=== PATIENT | female | born 1955 | race Caucasian/White ===

== ENCOUNTER → 2017-01-24 | Outpatient (CLI) | payer MEDICARE, OTHER ==
[~2017-01-24] MED LIST: ACETAMINOPHEN PO; ALBUTEROL17 GM; ALBUTEROL17 GM INH; ASPIRIN PO; AUGMENTIN PO; BACITRACIN30 GM TOP; BENICAR PO; BENTYL20 MG PO; CELEXA20 MG PO; CIPRO PO; DESYREL50 MG PO; DIFLUCAN100 MG PO; DULERA 100 MCG/13 GM IH; EFFEXOR XR PO; ESTRACE PO; FAMOTIDINE PO; FLEXERIL10 M1 PO; FLEXERIL10 MG PO; FLOVENT DISKUS50 MCG; GABAPENTIN300 M2 PO; GABAPENTIN400 M2 PO; IBUPROFEN800 MG PO; INSULIN GLARGINE; LEVOTHYROXINE100 MC1 PO; LEVOTHYROXINE75 MC1 PO; LEVOXYL PO; LIDOCAINE1 EACH TOP; LISINOPRIL PO; LOVASTATIN20 M1 PO; METFORMIN PO; METOPROLOL TAR25 MG PO; MONTELUKAST SOD10 MG PO; NEURONTIN100 MG PO; NYAMYC PO; OMEPRAZOLE40 M1 PO; ONDANSETRON HCL4 M1 PO; SINGULAIR PO; SYMBICORT INH; SYNTHROID PO; TRADJENTA5 MG PO; TRAMADOL HCL50 M1 PO; TRAZODONE PO; VENTOLIN PO; VICODIN 5/1 TAB 5/50 PO; VITAMIN D1000 UNI2 PO; VITAMIN D250000 UNIT PO; VOLTAREN75 MG PO; ZITHROMAX PO; [UNRECOGNIZED DRUG - OTHER] OP
--- NOTE | ~2017-01-24 | CT2 ---
[facility] A Service [facility] RADIOLOGY TEXT RESULTS PATIENT: GEORGIA BENTLEY LOCATION: [facility] : 59 UNIT #: [id number] AGE: [address]: Tati Cruz MD SEX: F ORDER DR: [id number] [place], [place] [address] [id number] O MR#: [id number] Acc #: [id number] NAME: GEORGIA BETNLEY : 1955 SEX: F STUDY DATE/TIME: 01/24/2017 11:18 UNIT: [facility] ROOM: STUDY DESCRIPTION: CT Abd and Pelv W Cont Attending Physician: Tati Cruz M.D. Referring Physician: Tati Cruz M.D. Ordering Physician: Tati Cruz M.D. Primary Care Physician: Tati Cruz M.D. MEDICAL IMAGING REPORT This report is preliminary unless electronic signature is present EXAM CT abdomen and pelvis with contrast INDICATIONS Right-sided abdominal pain and right-sided flank pain for the past 2 weeks. PROCEDURE Contrast-enhanced CT of the abdomen and pelvis. This CT exam was performed with one or more of the following radiation dose reduction techniques: automatic exposure control, adjustment of mA and/or kV according to patient size, and iterative reconstruction. COMPARISON STUDIES 11/30/2013 FINDINGS ABDOMEN WITH CONTRAST: The included lung bases are clear. The liver, spleen, kidneys, adrenal glands, pancreas unremarkable. Previous cholecystectomy. There are a few mildly prominent periportal nodes that are unchanged. There is mild diffuse thickening of the distal sigmoid colon and rectum. There is also mild thickening in the ascending colon. No abdominal fluid collection. PELVIS WITH CONTRAST: Previous hysterectomy. No pelvic mass or fluid. No aggressive appearing bone lesion. IMPRESSION Mild apparent thickening of the sigmoid colon and rectum as well as thickening in the ascending colon. Correlate for the possibility of colitis. There is no evidence for abscess and only minimal surrounding haziness suggesting mild inflammation. No evidence for obstruction. [facility] A Service [facility] RADIOLOGY TEXT RESULTS PATIENT: GEORGIA BENTLEY LOCATION: [facility] : 59 UNIT #: [id number] AGE: [address]: Tati Cruz MD SEX: F ORDER DR: Dictated by... Mayco Nunez M.D. THIS IS AN ELECTRONICALLY VERIFIED REPORT Mayco Nunez M.D. at 01/26/2017 2:28 PM SENIA/alicia TD: 01/24/2017 15:27 JOB #: [id number] MEDICAL IMAGING REPORT Page 1 of 1 COPY
[2017-01-24 10:40] LABS: POC - CREATININE 0.83 mg/dL (0.44-1.03); POC - GFR >60.0 mL/min (>60)
== END | disposition home or self-care (01) ==
LOC: CCAT 08:55
PROVIDERS: Family Medicine
DX: R10.13 Epigastric pain (principal); K63.89 Other specified diseases of intestine; Z80.51 Family history of malignant neoplasm of kidney
CPT/HCPCS: 74177; 82565; Q9967

== ENCOUNTER 2017-02-18 17:26 | Emergency (ER) | payer MEDICARE, OTHER ==
--- NOTE | ~2017-02-18 | EKG ---
PATIENT: GEORGIA BENTLEY UNIT #: [id number] Ventricular Rate: 76 BPM Atrial Rate: 76 BPM P-R Interval: 150 ms QRS Duration: 74 ms Q-T Interval: 390 ms QTC Calculation(Bezet): 438 ms P [place]: 54 degrees Calculated R [place]: 24 degrees Calculated T [place]: 13 degrees Diagnosis Line: Normal sinus rhythm Diagnosis Line: Low voltage QRS Diagnosis Line: Borderline ECG Diagnosis Line: When compared with ECG of 03-FEB-2015 08:37, Diagnosis Line: Inverted T waves have replaced nonspecific T wave Diagnosis Line: abnormality in Inferior leads Diagnosis Line: Confirmed by DANNY SANCHEZ MD ([id number]) on 02/23/2017 Diagnosis Line: 2:38:03 PM INTERPRETING MD: LAURA DAY
--- NOTE | ~2017-02-18 | CR72 ---
[facility] A Service of [facility] RADIOLOGY TEXT RESULTS PATIENT: GEORGIA BENTLEY LOCATION: [facility] : 59 UNIT #: [id number] AGE: [address]: Wesley López MD SEX: F ORDER DR: [id number] [facility] [address] [place], [place] [address] [id number] E MR#: [id number] Acc #: [id number] NAME: GEORGIA BENTLEY : 1955 SEX: F STUDY DATE/TIME: 02/18/2017 21:45 UNIT: [facility] ROOM: STUDY DESCRIPTION: CR Chest Single View Portable Attending Physician: Mayco López M.D. Ordering Physician: Ed Matt Workman M.D. Primary Care Physician: Tati Cruz M.D. MEDICAL IMAGING REPORT This report is preliminary unless electronic signature is present EXAM AP view of the chest COMPARISON February 03, 2015, September 20, 2014. INDICATION 61-year-old female with left-sided chest pain for 3 days. FINDINGS Heart size appears mildly enlarged from comparisons, possibly secondary to portable technique. Mild cardiomegaly cannot be excluded. No evidence of pneumothorax, pleural effusions, acute airspace disease, or pulmonary edema. IMPRESSION No acute radiographic abnormality of the chest. Questionable cardiomegaly, perhaps developed from 2014. This is not well evaluated on portable exam. Dictated by... Brijesh Darby M.D. THIS IS AN ELECTRONICALLY VERIFIED REPORT Brijesh Darby M.D. at 02/20/2017 10:33 PM Vesta TD: 02/19/2017 14:18 JOB #: [id number] MEDICAL IMAGING REPORT Page 1 of 1 COPY
[~2017-02-18 17:26] MED LIST changes: -DESYREL50 MG PO; -FLOVENT DISKUS50 MCG; -GABAPENTIN400 M2 PO; -INSULIN GLARGINE; -LEVOTHYROXINE100 MC1 PO; -LIDOCAINE1 EACH TOP; -METOPROLOL TAR25 MG PO; -MONTELUKAST SOD10 MG PO; -NYAMYC PO; -ONDANSETRON HCL4 M1 PO; -SYMBICORT INH; -TRADJENTA5 MG PO; -VENTOLIN PO; -VITAMIN D1000 UNI2 PO
[2017-02-18 18:44] LABS: BASOPHIL# 0.1 X10e3 (0-0.3); BASOPHIL% 0.6 % (0-2.5); EOSINOPHIL# 0.5 X10e3 (0-0.7); EOSINOPHIL% 4.5 % (0.0-7.0); HEMATOCRIT 39.1 % (35.0-45.0); HEMOGLOBIN 13.4 gm/dL (12.0-16.0); LYMPHOCYTE# 2.6 X10e3 (1.0-3.5); LYMPHOCYTE% 22.1 % (17.0-45.0); MEAN CELL VOLUME 84.7 FL (83-96); MEAN CORPUSCULAR HGB CONC 34.2 g/dL (30-36); MEAN PLATELET VOLUME 8.5 FL (6.5-11.5); MONOCYTE# 0.9 X10e3 (0-1.0); MONOCYTE% 7.5 % (3.0-12.0); NEUTROPHIL# 7.7 X10e3 (1.5-7.1); NEUTROPHIL% 65.3 % (40-75); PLATELET COUNT 212 X10e3 (140-420); RED BLOOD COUNT 4.61 X10e (3.90-5.30); RED CELL DISTRIBUTION WIDTH 13.1 % (11.0-15.5); WHITE BLOOD COUNT 11.8 X10e3 (4.0-10.5)
[2017-02-18 18:54] LABS: DIFF IND NO
[2017-02-18 19:11] LABS: ALBUMIN SERUM 4.4 g/dL (3.5-5.0); BILIRUBIN, DIRECT 0.1 mg/dL (0.0-0.2); BILIRUBIN,INDIRECT 0.8 mg/dL (0.0-0.9); BILIRUBIN,TOTAL 0.9 mg/dL (0.2-2.0); BUN/CREATININE RATIO 21.66; CALCIUM SERUM 9.1 mg/dL (8.4-10.2); CREATININE SERUM 0.6 mg/dL (0.6-1.4); GLOM FILT RATE Estimated 99.8 mL/min (>60); PROTEIN TOTAL SERUM 7.5 g/dL (6.0-8.3)
[2017-02-18 19:12] LABS: POC - CKMB <1.0 ng/mL (0.0-7.9); POC - TROPONIN <0.05 ng/mL (<=0.05)
[2017-02-18 21:22] LABS: POC - CKMB <1.0 ng/mL (0.0-7.9); POC - TROPONIN <0.05 ng/mL (<=0.05)
[2017-02-19] MEDS ORDERED: LEVOTHYROXINE100 MC1 PO (00:52)
[2017-02-19] MEDS ORDERED: TRADJENTA5 MG PO (00:52)
[2017-02-19] MEDS ORDERED: METOPROLOL TAR25 MG PO (00:52)
[2017-02-19] MEDS ORDERED: LOVASTATIN20 M1 PO (00:53)
[2017-02-19] MEDS ORDERED: MONTELUKAST SOD10 MG PO (00:53)
[2017-02-19] MEDS ORDERED: GABAPENTIN400 M2 PO (00:53)
[2017-02-19] MEDS ORDERED: OMEPRAZOLE40 M1 PO (00:54)
[2017-02-19] MEDS ORDERED: ONDANSETRON HCL4 M1 PO (00:54)
[2017-02-19] MEDS ORDERED: BENTYL20 MG PO (00:55)
[2017-02-19] MEDS ORDERED: FLEXERIL10 MG PO (00:56)
[2017-02-19] MEDS ORDERED: SYMBICORT INH (00:57)
[2017-02-19] MEDS ORDERED: VENTOLIN PO (01:00)
[2017-02-19] MEDS ORDERED: FLOVENT DISKUS50 MCG (01:01)
[2017-02-19] MEDS ORDERED: INSULIN GLARGINE (01:03)
[2017-02-19] MEDS ORDERED: NYAMYC PO (01:05)
[2017-02-19] MEDS ORDERED: IBUPROFEN800 MG PO (01:06)
[2017-02-19] MEDS ORDERED: VITAMIN D1000 UNI2 PO (01:07)
[2017-02-19] MEDS ORDERED: DESYREL50 MG PO (01:07)
[2017-02-19] MEDS ORDERED: LIDOCAINE1 EACH TOP (01:09)
== END 2017-02-19 02:32 | disposition home or self-care (01) ==
LOC: CED 17:26
PROVIDERS: Emergency Medicine
DX: R07.9 Chest pain, unspecified (principal); E11.9 Type 2 diabetes mellitus without complications; J45.909 Unspecified asthma, uncomplicated; I10 Essential (primary) hypertension; E03.9 Hypothyroidism, unspecified; Z90.49 Acquired absence of other specified parts of digestive tract; Z90.710 Acquired absence of both cervix and uterus; Z88.0 Allergy status to penicillin; Z88.8 Allergy status to other drugs, medicaments and biological substances; Z79.899 Other long term (current) drug therapy
CPT/HCPCS: 36415; 71010; 80048; 80076; 82553; 84484; 85025; 93005; 99285

== ENCOUNTER → 2017-03-07 | Outpatient (CLI) | payer MEDICARE, OTHER ==
[~2017-03-07] MED LIST changes: +DESYREL50 MG PO; +FLOVENT DISKUS50 MCG; +GABAPENTIN400 M2 PO; +INSULIN GLARGINE; +LEVOTHYROXINE100 MC1 PO; +LIDOCAINE1 EACH TOP; +METOPROLOL TAR25 MG PO; +MONTELUKAST SOD10 MG PO; +NYAMYC PO; +ONDANSETRON HCL4 M1 PO; +SYMBICORT INH; +TRADJENTA5 MG PO; +VENTOLIN PO; +VITAMIN D1000 UNI2 PO
--- NOTE | ~2017-03-07 | MY29 ---
[facility] A Service [facility] RADIOLOGY TEXT RESULTS PATIENT: GEORGIA BENTLEY [facility] 59 UNIT #: [id number] AGE: [address]: Tati Cruz MD SEX: F ORDER DR: [id number] [facility] [address] [place], [place] [address] [id number] O MR#: [id number] Acc #: [id number] NAME: GEORGIA BENTLEY. : 1955 SEX: F STUDY DATE/TIME: 03/07/2017 12:23 [facility] ROOM: STUDY DESCRIPTION: MY BRYCE SCREENING W/ CAD BILAT Attending Physician: Tati Cruz M.D. Referring Physician: Tati Cruz M.D. Ordering Physician: Tati Cruz M.D. Primary Care Physician: Tati Cruz M.D. MEDICAL IMAGING REPORT This report is preliminary unless electronic signature is present EXAM Bilateral digital screening with CAD INDICATION Routine screening. No current complaints. No family history of breast cancer. COMPARISON 01/13/2016, 12/12/2014 and 12/10/2013 FINDINGS MLO, CC and exaggerated lateral CC views of each breast were obtained. The exam was reviewed with FDA-approved CAD device. There are scattered fibroglandular densities present. There are no masses or abnormal calcifications. IMPRESSION No change and no evidence of malignancy. Patients over the age of 40 are entered into a reminder system with target due date for the next mammogram. A result letter will also be sent to the patient. BIRADS: 1 Negative Dictated by... Maximino Ceja M.D. THIS IS AN ELECTRONICALLY VERIFIED REPORT Maximino Ceja M.D. at 03/08/2017 4:38 PM LYNDON/penny TD: 03/08/2017 15:09 [facility] A Service [facility] RADIOLOGY TEXT RESULTS PATIENT: GEORGIA BENTLEY [facility] 59 UNIT #: [id number] AGE: [address]: Tati Cruz MD SEX: F ORDER DR: JOB #: [id number] MEDICAL IMAGING REPORT Page 1 of 1 COPY
== END | disposition home or self-care (01) ==
LOC: CWCC 11:48
DX: Z12.31 Encounter for screening mammogram for malignant neoplasm of breast (principal)
CPT/HCPCS: G0202

== ENCOUNTER → 2017-05-06 | Outpatient (CLI) | payer MEDICARE, OTHER ==
[2017-05-06 04:30] LABS: AMPHETAMINE NEG (NEG); BARBITURATES NEG (NEG); BENZODIAZEPINES NEG (NEG); COCAINE NEG (NEG); MARIJUANA NEG (NEG); OPIATES NEG (NEG); TRICYCLIC ANTIDEPRESSANTS NEG (NEG); U METHADONE NEG (NEG)
[2017-05-06 05:02] LABS: CHOLESTEROL 177 mg/dL (0-200); HDL CHOLESTEROL 58 mg/dL (35-95); LDL CHOLESTEROL 94 mg/dL (-130); LDL/HDL RATIO 2 RATIO (0-4); TRIGLYCERIDES 124 mg/dL (10-160)
== END | disposition home or self-care (01) ==
LOC: CLAB 03:19
DX: E11.9 Type 2 diabetes mellitus without complications (principal); E55.9 Vitamin D deficiency, unspecified; Z79.899 Other long term (current) drug therapy
CPT/HCPCS: 36415; 80061; 80307; 82043; 82306; 82570; 83036; 84443